=== PATIENT | male | born 1985 | race Caucasian/White ===

== ENCOUNTER 2017-04-13 00:01 | Emergency (ER) | payer SELFPAY ==
[2017-04-13 00:02] VITALS: BMI 35.0
[2017-04-13] MEDS ORDERED: Sodium Chloride 0.9% 1,000 ML IV STA (01:47)
--- NOTE | 2017-04-13 01:49 | ED PDOC ---
Arrival/HPI - General Chief Complaint: Abdominal Pain Time Seen by Provider: 04/13/17 01:33 Historian: Patient - History of Present Illness Narrative History of Present Illness (Text): 04/13/17 01:45 31 year old male whose past medical history includes gastritis and h. pylori, presents to the emergency department complaining of epigastric abdominal pain. He states he had chicken around 11:00PM before vomiting. Patient states he has no allergies. Patient denies any fever, chills, chest pain, shortness of breath , diarrhea, urinary symptoms, back pain, neck pain, headache, dizziness, or any other complaints. Time/Duration: Other (tonight) Symptom Onset: Gradual Symptom Course: Unchanged Activities at Onset: Light Past Medical History - Provider Review Nursing Documentation Reviewed: Yes - Tetanus Immunization Tetanus Immunization: Unknown - Past Medical History Past Medical History: Non-Contributing - Cardiac Hx Cardiac Disorders: No - Pulmonary Hx Respiratory Disorders: No - Neurological Hx Neurological Disorder: No - HEENT Hx HEENT Disorder: No - Renal Hx Renal Disorder: No - Endocrine/Metabolic Hx Endocrine Disorders: No - Hematological/Oncological Hx Blood Disorders: No - Integumentary Hx Dermatological Disorder: No - Musculoskeletal/Rheumatological Hx Musculoskeletal Disorders: No - Gastrointestinal Hx Gastritis: Yes Other/Comment: h pylori - Genitourinary/Gynecological Hx Genitourinary Disorders: No Hx Bladder Cancer: No Hx Bladder Stone: No Hx Cervical Cancer: No Hx Hematuria: No Hx Incontinence: No Hx Ovarian Cancer: No Hx Prostate Cancer: No Hx Prostate Problems: No Hx Reproductive Disorders: No Hx Sexually Transmitted Diseases: No Hx Uterine Cancer: No Hx Urinary Tract Infection: No - Psychiatric Hx Psychophysiologic Disorder: Yes Hx Post Traumatic Stress Disorder: Yes Hx Substance Use: No - Past Surgical History Past Surgical History: Non-Contributing - Surgical History Other/Comment: pilondial cyst - Anesthesia Hx Anesthesia: No Hx Anesthesia Reactions: No Hx Malignant Hyperthermia: No - Suicidal Assessment Feels Threatened In Home Enviroment: No Family/Social History - Physician Review Nursing Documentation Reviewed: Yes Family/Social History: No Known Family HX Smoking Status: Never Smoked Hx Alcohol Use: Yes Frequency of alcohol use: Socially Hx Substance Use: No Allergies/Home Meds Allergies/Adverse Reactions: Allergies No Known Allergies Allergy (Verified 04/13/17 01:17) Review of Systems - Physician Review All systems were reviewed & negative as marked: Yes - Review of Systems Constitutional: absent: Fevers Respiratory: absent: SOB Cardiovascular: absent: Chest Pain Gastrointestinal: Abdominal Pain (Epigastric abdominal pain), Nausea, Vomiting. absent: Diarrhea Musculoskeletal: absent: Back Pain, Neck Pain Neurological: absent: Headache, Dizziness Physical Exam Vital Signs Reviewed: Yes Vital Signs Temp Pulse Resp BP Pulse Ox 04/13/17 01:18 150/85 04/13/17 01:17 98.1 F 45 L 18 99 Temperature: Afebrile Blood Pressure: Normal Pulse: Regular Respiratory Rate: Normal Appearance: Positive for: Well-Appearing Pain Distress: None Mental Status: Positive for: Alert and Oriented X 3 - Systems Exam Head: Present: Atraumatic Pupils: Present: PERRL Extroacular Muscles: Present: EOMI Conjunctiva: Present: Normal Mouth: Present: Moist Mucous Membranes Neck: Present: Normal Range of Motion Respiratory/Chest: Present: Clear to Auscultation, Good Air Exchange. No: Respiratory Distress, Accessory Muscle Use Cardiovascular: Present: Regular Rate and Rhythm, Normal S1, S2. No: Murmurs Abdomen: Present: Tenderness (epigastric tenderness), Normal Bowel Sounds. No: Distention, Peritoneal Signs Back: Present: Normal Inspection Upper Extremity: Present: Normal Inspection. No: Cyanosis, Edema Lower Extremity: Present: Normal Inspection. No: Edema Neurological: Present: GCS=15, CN II-XII Intact, Speech Normal Skin: Present: Warm, Dry, Normal Color. No: Rashes Psychiatric: Present: Alert, Oriented x 3, Normal Insight, Normal Concentration Medical Decision Making ED Course and Treatment: 04/13/17 01:45 Impression: 31 year old male present complaining of epigastric abdominal pain. Associated symptoms include nausea and vomiting. Plan: -- Labs -- Pepcid -- Totadol -- Zofron -- IV Fluid -- Reassess and disposition Prior Visits: Notes and results from previous visits were reviewed. On 08/13/16 patient came in complaining of burning epigastric pain. Patient was discharged. Progress Notes: 04/13/17 04:28 On reevaluation the patient feels better and is in no acute distress. I have discussed the results and plan with the patient, who expresses understanding. Patient given the opportunity to ask question, all questions were answered and there is agreement with the plan to discharge the patient home. Patient is stable for discharge. Patient was instructed to follow up with physician/clinic in 1-2 days or return if symptoms persist/worsen or new concerning symptoms arise. - Lab Interpretations Lab Results: 04/13/17 02:15 04/13/17 02:15 Lab Results 04/13/17 02:15: WBC 11.5 H D, RBC 4.87, Hgb 13.2 L, Hct 39.4 L, MCV 80.9, MCH 27.1, MCHC 33.5, RDW 14.3, Plt Count 168, MPV 12.2 H 04/13/17 02:15: Sodium 141, Potassium 4.3, Chloride 102, Carbon Dioxide 27, Anion Gap 16, BUN 26 H, Creatinine 0.9, Est GFR ( Amer) > 60, Est GFR ( Non-Af Amer) > 60, Random Glucose 101, Calcium 9.5, Total Bilirubin 0.5, AST 31 , ALT 38, Alkaline Phosphatase 69, Total Protein 7.8, Albumin 4.7, Globulin 3.0 , Albumin/Globulin Ratio 1.6, Lipase 182 I have reviewed the lab results: Yes - Medication Orders Current Medication Orders: Discontinued Medications Famotidine (Pepcid) 20 mg IVP STAT STA Stop: 04/13/17 01:48 Last Admin: 04/13/17 02:29 Dose: 20 mg Sodium Chloride (Sodium Chloride 0.9%) 1,000 mls @ 999 mls/hr IV .Q1H1M STA Stop: 04/13/17 02:47 Last Admin: 04/13/17 02:30 Dose: 999 mls/hr Ketorolac Tromethamine (Toradol) 30 mg IVP ONCE ONE Stop: 04/13/17 01:48 Last Admin: 04/13/17 02:30 Dose: 30 mg Re-Assess: MAR Pain Assessment Document 04/13/17 03:30 [place] (Rec: 04/13/17 04:12 [place] [facility] [id number] Pain Reassessment Is this a pain reassessment? Yes Sleep Is patient sleeping during reassessment? Yes Ondansetron HCl (Zofran Inj) 4 mg IVP ONCE ONE Stop: 04/13/17 01:48 Last Admin: 04/13/17 02:30 Dose: 4 mg - Scribe Statement The provider has reviewed the documentation as recorded by the Sherry garcia with Delfina Menard All medical record entries made by the Sherry were at my direction and personally dictated by me. I have reviewed the chart and agree that the record accurately reflects my personal performance of the history, physical exam, medical decision making, and the department course for this patient. I have also personally directed, reviewed, and agree with the discharge instructions and disposition. Disposition/Present on Arrival - Present on Arrival Any Indicators Present on Arrival: No History of DVT/PE: No History of Uncontrolled Diabetes: No Urinary Catheter: No History of Decub. Ulcer: No History Surgical Site Infection Following: None - Disposition Have Diagnosis and Disposition been Completed?: Yes Diagnosis: Gastritis Disposition: HOME/ ROUTINE Disposition Time: 04:28 Patient Plan: Discharge Patient Problems: Current Active Problems Problem Status Onset Gastritis Acute Condition: GOOD Discharge Instructions (ExitCare): Gastritis (ED) Additional Instructions: Drink small amounts of liquids at a time/bland diet advance as tolerated/take meds as prescribed/follow up with your doctor this week Prescriptions: Ondansetron [Zofran Odt] 4 mg PO Q6 #12 odt Referrals: Troy Prajapati, [Primary Care Provider] - Follow up with primary Forms: [employer] (Vietnamese)
[2017-04-13 02:35] LABS: HEMOGLOBIN 13.2 g/dL (14.0-18.0); MEAN CELL VOLUME 80.9 fl (80.0-105.0); MEAN CORPUSCULAR HEMOGLOBIN 27.1 pg (25.0-35.0); MEAN CORPUSCULAR HGB CONC 33.5 g/dl (31.0-37.0); MEAN PLATELET VOLUME 12.2 fl (7.0-11.0); RBC 4.87 10^6/uL (3.5-6.1); RED CELL DISTRIBUTION WIDTH 14.3 % (11.5-14.5); WHITE BLOOD COUNT 11.5 10^3/ul (4.5-11.0)
[2017-04-13 02:52] LABS: ALB/GLOB RATIO 1.6 (1.1-1.8); ALBUMIN 4.7 g/dL (3.0-4.8); ALT/SGPT 38 U/L (7-56); AST/SGOT 31 U/L (15-59); BLOOD UREA NITROGEN 26 mg/dL (7-21); CALCIUM 9.5 mg/dL (8.4-10.5); GFR AFRICAN-AMERICAN > 60; GFR NON-AFRICAN AMERICAN > 60; LIPASE 182 U/L (23-300)
[2017-04-13 04:57] VITALS: BP 142/80; PULSE 52; RESP 16; TEMP 97.9; O2SAT 100
== END 2017-04-13 04:58 | disposition home or self-care (01) ==
LOC: ED 00:01
DX: K29.70 Gastritis, unspecified, without bleeding (principal)
CPT/HCPCS: 80053; 83690; 85027; 96361; 96374; 96375; 99284; J1885; J2405; J7040